=== PATIENT | female | born 1980 | race Caucasian/White ===

== ENCOUNTER 2018-07-07 23:13 | Emergency (ER) | payer MEDICAID, OTHER ==
[2018-07-07 23:24] VITALS: BP 161/82
[2018-07-07] MEDS ORDERED: CLINDAMYCIN 150 MG CAPSULE PO STA (23:42)
[2018-07-07] MEDS ORDERED: HYDROcod/ACET 5/325 Prepack 4 PO STA (23:42)
[2018-07-07] MEDS ORDERED: HYDROcod/ACETAM 5/325 MG TABLET PO STA (23:42)
--- NOTE | 2018-07-07 23:42 | ED Physician Documentation ---
PD HPI HEENT - Stated complaint Stated Complaint: DENTAL PAIN - Chief complaint Chief Complaint: General - History obtained from History obtained from: Patient - History of Present Illness Timing - onset: How many days ago (has had pain in right upper tooth for a week or so, seen by dentist but did not have money for extraction at this time. Plan for extraction or such next week. Having increased pain in tooth the past couple of days. Some redness of the gum.) Timing - duration: Days Timing - details: Gradual onset, Waxing and waning Location: Tooth (right upper) Improves: Ice. No: Medication (ibuprofen) Worsens: Everything Associated symptoms: No: Fever, Swollen nodes, Facial swelling Similar symptoms before: Has not had sx before Recently seen: Clinic (dentist last week, but no treatment done other than xrays and eval until patient had money for procedure.) Review of Systems Constitutional: denies: Fever Nose: denies: Rhinorrhea / runny nose, Congestion Throat: reports: Dental pain / toothache. denies: Sore throat Respiratory: denies: Dyspnea Skin: denies: Rash, Lesions PD PAST MEDICAL HISTORY - Past Medical History Past Medical History: No - Past Surgical History Past Surgical History: No - Present Medications Home Medications: Ambulatory Orders Medication Instructions Recorded Confirmed Clindamycin HCl [Clindamycin 300MG 300 mg PO TID #20 capsule 07/07/18 CAP] Hydrocodone/Acetaminophen [[place] 1 each PO Q6H PRN #20 tablet 07/07/18 5-325 Tablet] - Allergies Allergies/Adverse Reactions: Allergies Allergy/AdvReac Type Severity Reaction Status Date / Time diphenhydramine HCl * Allergy Nausea Verified 07/07/18 23:24 [From Benadryl] Penicillins Allergy Unknown Verified 07/07/18 23:24 - Social History Does the pt smoke?: No Smoking Status: Never smoker Does the pt drink ETOH?: Yes Does the pt have substance abuse?: No - Immunizations Immunizations are current?: No - POLST Patient has POLST: No PD ED PE NORMAL - Vitals Vital signs reviewed: Yes - General General: Alert and oriented X 3, Well developed/nourished, Other (appears in pain due to tooth) - HEENT HEENT: Pharynx benign. No: Dentition benign (there is broken tooth right upper, with cup shaped residual portion. Mild redness and swelling of the gum. ) - Neck Neck: Supple, no meningeal sign, No adenopathy - Cardiac Cardiac: RRR, No murmur - Respiratory Respiratory: Clear bilaterally - Derm Derm: Normal color, Warm and dry, No rash Results - Vitals Vitals: Vital Signs - 24 hr 07/07/18 23:22 Temperature 36.9 C Heart Rate 87 Respiratory 17 Rate Blood Pressure 161/82 H O2 Saturation 99 Oxygen O2 Source Room air Procedures - Regional nerve block Nerve block site: Infraorbital Right / left: Right Nerve block anesthesia: Marcaine 0.5% Nerve block aftercare: Excellent anesthesia, Patient tolerated well, No complications PD MEDICAL DECISION MAKING - ED course Complexity details: considered differential (I was able to place some [place] temporary filling into the residual Portion of the broken tooth. It had been broken since March but she did not have any coverage for dental and delayed treatment. It started hurting however the last week or so and did see a dentist. She will get some procedure done hopefully next week when she has the money available for the dental procedure. Apparently the extraction or root canal was not covered. Concern for early infection now or just inflammation around the nerve. She was hurting enough to accept a dental block for tonight as well as the temporary filling antibiotics and pain medicines.), d/w patient Departure - Departure Disposition: 01 Home, Self Care Clinical Impression: Pain due to dental caries, Dental infection Condition: Stable Record reviewed to determine appropriate education?: Yes Follow-Up: Chaz Park MD [Primary Care Provider] - Prescriptions: Clindamycin HCl [Clindamycin 300MG CAP] 300 mg PO TID #20 capsule Hydrocodone/Acetaminophen [[place] 5-325 Tablet] 1 each PO Q6H PRN #20 tablet PRN Reason: Pain Comments: Avoid hard chewing or firm chewing on that side to try to keep the temporary filling in place. Continue anti-inflammatories such as ibuprofen 2-3 times a day with food. Clindamycin antibiotic 3 times daily for the next 5-7 days for potential early infection. Add Tylenol or hydrocodone as needed for pain. Follow-up with your dentist Tuesday for more definitive treatment of the tooth. Discharge Date/Time: 07/08/18 00:14
[2018-07-07] MEDS ORDERED: BUPIVACAINE 0.5%-EPI 1:200000 PF 10 ML VIAL SUBQ STA (23:58)
== END 2018-07-08 00:14 | disposition home or self-care (01) ==
LOC: ED 23:13
DX: K02.9 Dental caries, unspecified (principal); K04.7 Periapical abscess without sinus
CPT/HCPCS: 64400; 99283; A9270

== ENCOUNTER 2020-07-08 16:39 | Outpatient (CLI) | payer BC, OTHER ==
--- OUTSIDE RECORDS SUMMARY | 2020-07-09 04:53 | EXTERNAL MEDICAL SUMMARY RPT | Continuity of Care Document ---
:1980 Demographics Phone Unavailable Preferred Language Unknown Marital Status Unknown Yazdanism Affiliation Unknown Race Unknown Ethnic Group Unknown Author Organization [facility] Address [address] [phone] Phone Care Team Providers Name Role Phone Rochier Unavailable Unavailable Problems date description facility 2018-07-07 23:13 DENTAL CARIES, UNSPECIFIED [facility] 2018-07-07 23:13 PERIAPICAL ABSCESS WITHOUT SINUS [facility] 2018-07-07 23:13 OTHER SPECIFIED DISORDERS OF TEETH [facility] AND SUPPORTING STRUCTURES Allergies date description facility NO KNOWN ENVIRONMENTAL ALLERGIES [facility] LACTOSE [facility] diphenhydramine HCl * [facility] Penicillins [facility] Social History date description facility [id number]
== END 2020-07-08 16:40 | disposition home or self-care (01) ==
LOC: COV 16:39
PROVIDERS: ATTEND Family Medicine
DX: R05 Cough (principal); M79.10 Myalgia, unspecified site; R53.83 Other fatigue; R68.83 Chills (without fever); R43.8 Other disturbances of smell and taste; Z20.822 Contact with and (suspected) exposure to COVID-19